=== PATIENT | male | born 1980 | race Caucasian/White ===

== ENCOUNTER 2018-02-22 21:10 | Emergency (ER) | payer MEDICAID ==
[~2018-02-22] VITALS: Ht 180.3 cm; Wt 77.2 kg
[~2018-02-22 21:10] MED LIST: NO HOME MEDS
[2018-02-22 21:12] VITALS: BP 149/84
== END 2018-02-22 23:37 | disposition home or self-care (01) ==
LOC: ER 21:11
DX: H57.12 Ocular pain, left eye (principal); Z00.8 Encounter for other general examination
CPT/HCPCS: 99282

== ENCOUNTER 2021-04-12 21:44 | Emergency (ER) | payer MEDICAID, OTHER ==
[~2021-04-12] VITALS: Ht 180.3 cm; Wt 81.8 kg
[2021-04-13 00:28] VITALS: BP 117/82
[2021-04-13] MEDS ORDERED: DOXYCYCLINE 100MG CAPSULE PO STA (00:49)
[2021-04-13] MEDS ORDERED: cephalexin 250mg capsule PO ONE (00:50)
[2021-04-13] MEDS ORDERED: ibuprofen tablet 400 MG TABLET PO ONE (00:50)
[2021-04-13] MEDS ORDERED: ondansetron 4mg rapidly disintigrating tab PO ONE (00:50)
[2021-04-13] MEDS ORDERED: acetaminophen 325mg tablet PO ONE (00:50)
[2021-04-13] MEDS ORDERED: DOXY100C43 PO (00:54)
[2021-04-13] MEDS ORDERED: ONDA4TAB6 PO (00:54)
[2021-04-13] MEDS ORDERED: CEPH250T PO (00:54)
[2021-04-13] MEDS ORDERED: bacitracin 15gm ointment TP ONE (00:55)
== END 2021-04-13 01:27 | disposition home or self-care (01) ==
LOC: ER 21:45
DX: L03.116 Cellulitis of left lower limb (principal); L03.115 Cellulitis of right lower limb; Z72.89 Other problems related to lifestyle; Z79.2 Long term (current) use of antibiotics; Z79.899 Other long term (current) drug therapy
CPT/HCPCS: 99284